=== PATIENT | male | born 1995 | race Caucasian/White ===

== ENCOUNTER 2017-08-06 13:50 | Emergency (ER) | payer BC ==
[~2017-08-06] VITALS: Ht 188 cm; Wt 79.0 kg
[2017-08-06 13:56] VITALS: TEMP 36.8; Ht 188 cm; Wt 79.0 kg
--- NOTE | 2017-08-06 14:12 | EMERGENCY ROOM VISIT NOTE ---
History First contact with patient: 13:55 Chief Complaint: SEIZURE Stated Complaint: SEIZURE Nursing Triage Summary: pt to the ED via EMS from the [facility] where he had 2 witnessed sz lasting 45 sec no reports of trauma pt has hx of sz, last sz was 6 months ago no c/o pain pt is alert and oriented BSG per EMS was 87 History of Present Illness The patient is a 22 year old male who presents to the Emergency Room via ambulance with complaints of "seizure". The patient states that just prior to arrival he was at the [facility], and at the [employer] studying. He states that he was unaware however was told that he had 2 witnessed seizures. They lasted approximately 45 seconds. It is reported that there was no trauma. He does not remember the events. He states that his last seizure was 6 months ago, and he follows with a neurologist in [place]. He takes lorazepam as needed, fluoxetine 40 mg daily, and Keppra 750 mg every 12 hours. He has been compliant with his meds. He declines any alcohol or drug use. He denies any changes in behavior. He denies any pain at this time. 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 He denies biting his tongue or urinating during the seizure. Review of Systems A complete 10-point Review of Systems was discussed with the patient, with pertinent positives and negatives listed in the History of Present Illness. All remaining Review of Systems questions can be considered negative unless otherwise specified. Past Medical/Surgical History Seizure Social History Patient is a [employer] student and lives locally. He is from [place]. Current/Historical Medications Scheduled Clonazepam (Klonopin), 0.25 MG PO BID Physical Exam Vital Signs Date Time Temp Pulse Resp B/P (MAP) Pulse Ox O2 Delivery O2 Flow Rate FiO2 08/06/17 15:16 90 21 119/55 97 Room Air 08/06/17 14:25 89 08/06/17 13:56 36.8 97 16 127/57 95 Room Air Physical Exam VITAL SIGNS - Vital signs and nursing notes were reviewed. Stable. GENERAL -22-year-old male appearing his stated age who is in no acute distress. Communicates well with provider and answers questions appropriately. SKIN - Without rashes. No petechial or meningeal rash. No evidence of trauma to the head. HEAD - NC/AT. EYES - PERRL with EOMI bilaterally. Sclera anicteric. EARS - No deformities of external structures noted on gross examination bilaterally.No hemotympanum. Tympanic membranes pearly martinez without retraction or bulging. No fluid or purulent material visualized behind the TM. Handle of malleus, umbo, cone of light, pars tensa/flaccid all easily visualized. NOSE - Midline and without cyanosis. No epistaxis or purulent drainage noted. MOUTH/OROPHARYNX - Without perioral cyanosis. No trauma to the tongue noted. NECK - Neck with FROM. No C-spine tenderness. LUNGS - Chest wall symmetric without accessory muscle use, intercostals retractions, or central cyanosis. Normal vesicular breath sounds CTA B/L. No wheezes, rales, or rhonchi appreciated. CARDIAC - RRR with S1/S2. No murmur, rubs, or gallops appreciated. EXTREMITIES - No clubbing or peripheral cyanosis. No pretibial edema present. + 5/5 strength noted in UE/LE bilaterally. NEUROLOGIC - Cranial nerves II through XII grossly intact. Sensory intact to light touch throughout. PSYCH - A&Ox3 and cooperates fully with examiner. Pt is very pleasant and interacts well with examiner. Medical Decision & Procedures Laboratory Results 08/06/17 14:20 Red Blood Count 4.69, Mean Corpuscular Volume 89.8, Mean Corpuscular Hemoglobin 32.2, Mean Corpuscular Hemoglobin Concent 35.9, Mean Platelet Volume 8.6, Neutrophils (%) (Auto) 75.4, Lymphocytes (%) (Auto) 15.1, Monocytes (%) (Auto) 5.7, Eosinophils (%) (Auto) 2.6, Basophils (%) (Auto) 0.3, Neutrophils # (Auto) 7.94, Lymphocytes # (Auto) 1.59, Monocytes # (Auto) 0.60, Eosinophils # (Auto) 0.27, Basophils # (Auto) 0.03 08/06/17 14:20 Test 08/06/17 14:20 08/06/17 15:40 White Blood Count 10.53 K/uL (4.8-10.8) Red Blood Count 4.69 M/uL (4.7-6.1) Hemoglobin 15.1 g/dL (14.0-18.0) Hematocrit 42.1 % (42-52) Mean Corpuscular Volume 89.8 fL (80-100) Mean Corpuscular Hemoglobin 32.2 pg (25-34) Mean Corpuscular Hemoglobin Concent 35.9 g/dl (32-36) Platelet Count 290 K/uL (130-400) Mean Platelet Volume 8.6 fL (7.4-10.4) Neutrophils (%) (Auto) 75.4 % Lymphocytes (%) (Auto) 15.1 % Monocytes (%) (Auto) 5.7 % Eosinophils (%) (Auto) 2.6 % Basophils (%) (Auto) 0.3 % Neutrophils # (Auto) 7.94 K/uL (1.4-6.5) Lymphocytes # (Auto) 1.59 K/uL (1.2-3.4) Monocytes # (Auto) 0.60 K/uL (0.11-0.59) Eosinophils # (Auto) 0.27 K/uL (0-0.5) Basophils # (Auto) 0.03 K/uL (0-0.2) RDW Standard Deviation 42.9 fL (36.4-46.3) RDW Coefficient of Variation 13.1 % (11.5-14.5) Immature Granulocyte % (Auto) 0.9 % Immature Granulocyte # (Auto) 0.10 K/uL (0.00-0.02) Anion Gap 10.0 mmol/L (3-11) Est Creatinine Clear Calc Drug Dose 124.4 ml/min Estimated GFR () 117.0 Estimated GFR (Non- 101.0 BUN/Creatinine Ratio 10.2 (10-20) Calcium Level 9.8 mg/dl (8.5-10.1) Magnesium Level 2.3 mg/dl (1.8-2.4) Total Bilirubin 0.2 mg/dl (0.2-1) Aspartate Amino Transf (AST/SGOT) 24 U/L (15-37) Alanine Aminotransferase (ALT/SGPT) 38 U/L (12-78) Alkaline Phosphatase 105 U/L (45-117) Troponin I < 0.015 ng/ml (0-0.045) Total Protein 7.4 gm/dl (6.4-8.2) Albumin 3.7 gm/dl (3.4-5.0) Globulin 3.7 gm/dl (2.5-4.0) Albumin/Globulin Ratio 1.0 (0.9-2) Thyroid Stimulating Hormone (TSH) 1.040 uIu/ml (0.300-4.500) Urine Color YELLOW Urine Appearance CLEAR (CLEAR) Urine pH 6.5 (4.5-7.5) Urine Specific [place] 1.019 (1.000-1.030) Urine Protein 1+ (NEG) Urine Glucose (UA) NEG (NEG) Urine Ketones TRACE (NEG) Urine Occult Blood NEG (NEG) Urine Nitrite NEG (NEG) Urine Bilirubin NEG (NEG) Urine Urobilinogen NEG (NEG) Urine Leukocyte Esterase NEG (NEG) Urine WBC (Auto) 10-30 /hpf (0-5) Urine RBC (Auto) 0-4 /hpf (0-4) Urine Hyaline Casts (Auto) 1-5 /lpf (0-5) Urine Epithelial Cells (Auto) 10-20 /lpf (0-5) Urine Bacteria (Auto) NEG (NEG) Urine Sperm (Auto) PRESENT (NOT PRESENT) Medical Decision Patient was seen and evaluated as above. He presents to us via ambulance status post 2 seizures per bystanders. Review was performed of nursing notes and vital signs. After obtaining a thorough history and physical examination the above work up was performed. He has a history of seizures. He is on Lamictal twice daily. He no longer takes Keppra and Prozac. These levels were drawn because of the patient noting that that is what he took initially however after talking to his parents after his permission as well as his neurologist it was identified that he takes 200 mg twice daily of Lamictal as well as another medication from the family doctor for anxiety. I did personally discuss the case at 4:15 PM with his established neurologic physician material assistant, Jazmine Hinojosa. She recommended rest, and having a follow-up. Mother was able to secure an appointment with her office Saturday at 9 AM of this coming week. I did discuss whether or not to make medication adjustments and at this time was recommended to dissolve the patient to rest, not adjust any medications and allow him to follow-up. This is reasonable. CBC reveals no emergent process. No emergent process with a metabolic panel. Urine reveals no infection. The patient was educated upon management, had questions answered prior to discharge , and was discharged home in good condition. Case was discussed with the attending physician. In the evaluation and treatment of this patient, the following differential diagnoses were considered: Concussion, Contrecoup Injury, Brain Tumor, Depression, Encephalitis, Hypothyroidism, Meningitis, CVA, TIA, Migraine, Cluster Headache, Intracranial Abnormality, Intracranial Hemorrhage, Subdural Hematoma, Subarachnoid Hemorrhage, Hydrocephalus. Impression Primary Impression: Seizure Departure Information Dispostion Home / Self-Care Condition GOOD Patient Instructions My [facility] Additional Instructions You were seen in the emergency department for seizure activity. At this time I do recommend rest, plenty of fluids and continuing your prescribed medication. Please keep your follow up for Saturday at 9am as we discussed. I did discuss your seizure activity today with Jazmine Hinojosa, the physician material assistant that you followed with most recently. She requests that you follow in her office for potential medication change and reevaluation. Please return with any new/concerning symptoms. Thank you for your time.
[2017-08-06 14:33] LABS: BASO % 0.3 %; BASO ABS # 0.03 K/uL (0-0.2); EOS % 2.6 %; EOS ABS # 0.27 K/uL (0-0.5); HEMATOCRIT 42.1 % (42-52); HEMOGLOBIN 15.1 g/dL (14.0-18.0); LYMPH % 15.1 %; LYMPH ABS # 1.59 K/uL (1.2-3.4); MEAN CELL VOLUME 89.8 fL (80-100); MEAN CORPUSCULAR HEMOGLOBIN 32.2 pg (25-34); MEAN CORPUSCULAR HGB CONC 35.9 g/dl (32-36); MEAN PLATELET VOLUME 8.6 fL (7.4-10.4); MONO % 5.7 %; NEUT % 75.4 %; NEUT ABS # 7.94 K/uL (1.4-6.5); PLATELET COUNT 290 K/uL (130-400); RED CELL DISTRIBUTION WIDTH CV 13.1 % (11.5-14.5); RED CELL DISTRIBUTION WIDTH SD 42.9 fL (36.4-46.3); WHITE BLOOD COUNT 10.53 K/uL (4.8-10.8)
[2017-08-06 14:46] LABS: ALBUMIN 3.7 gm/dl (3.4-5.0); ALT/SGPT 38 U/L (12-78); BLOOD UREA NITROGEN 11 mg/dl (7-18); CALCIUM 9.8 mg/dl (8.5-10.1); CARBON DIOXIDE 22 mmol/L (21-32); CREATININE 1.05 mg/dl (0.60-1.40); GLUCOSE 102 mg/dl (70-99); POTASSIUM 4.7 mmol/L (3.5-5.1); SODIUM 136 mmol/L (136-145)
[2017-08-06 14:56] LABS: ALKALINE PHOSPHATASE 105 U/L (45-117); AST/SGOT 24 U/L (15-37); TOTAL PROTEIN 7.4 gm/dl (6.4-8.2)
[2017-08-06] MEDS ORDERED: CLON0.5T3 PO (15:43)
[2017-08-06 16:48] VITALS: BP 126/69; PULSE 82; O2SAT 96
== END 2017-08-06 16:52 | disposition home or self-care (01) ==
LOC: C.EDB 13:53
DX: R56.9 Unspecified convulsions (principal); Z79.899 Other long term (current) drug therapy